=== PATIENT | female | born 1960 | race Caucasian/White ===

== ENCOUNTER → 2023-12-13 07:10 | Outpatient (REF) | payer MEDICARE, OTHER, SELFPAY | LOC: HWRAD 07:10 | PROVIDERS: ATTENDING PHYSICIAN Physician Assistant Medical | DX: M85.80 Other specified disorders of bone density and structure, unspecified site (principal); M85.89 Other specified disorders of bone density and structure, multiple sites | CPT/HCPCS: 77080 ==

== ENCOUNTER → 2024-01-27 11:59 | Outpatient (REF) | payer MEDICARE, OTHER, SELFPAY | LOC: HWRAD 11:59 | PROVIDERS: ATTENDING PHYSICIAN Physician Assistant Medical | DX: M25.562 Pain in left knee (principal) | CPT/HCPCS: 73564 ==

== ENCOUNTER → 2024-05-21 07:54 | Outpatient (REF) | payer MEDICARE, OTHER, SELFPAY | LOC: HWWDC 07:54 | PROVIDERS: ATTENDING PHYSICIAN Physician Assistant Medical | DX: Z12.31 Encounter for screening mammogram for malignant neoplasm of breast (principal) | CPT/HCPCS: 77063; 77067 ==

== ENCOUNTER → 2025-07-20 14:39 | Outpatient (REF) | payer MEDICARE, OTHER, SELFPAY | LOC: HWWDC 14:39 | PROVIDERS: ATTENDING PHYSICIAN Physician Assistant Medical | DX: Z12.31 Encounter for screening mammogram for malignant neoplasm of breast (principal) | CPT/HCPCS: 77063; 77067 ==

== ENCOUNTER 2025-08-01 02:41 | Observation (INO) | payer MEDICARE, OTHER, SELFPAY ==
[2025-07-31 19:43] VITALS: BP 155/90
[2025-07-31 20:14] LABS: Hematocrit 35.6 % (37.0-47.0); Hemoglobin 12.5 g/dL (12.0-16.0); Mean Corp Hgb Conc. 35.1 g/dL (33.0-37.0); Mean Corpuscular Volume 89.4 fL (81.0-99.0); Nucleated Red Blood Cells % 0 %; Platelet Count 213 10^3/uL (130-400); Red Cell Dist. Width 13.0 % (11.5-14.5)
[2025-07-31 20:28] LABS: ALT (SGPT) 16 U/L (0-35); AST (SGOT) 23 U/L (14-36); Albumin 4.6 g/dl (3.5-5.0); Alkaline Phosphatase 49 U/L (38-126); Blood Urea Nitrogen 14 mg/dl (7-17); Calcium 9.7 mg/dl (8.4-10.2); Carbon Dioxide 20 mmol/L (22-30); Chloride 106 mmol/L (98-107); Glucose 106 mg/dl (70-99); Potassium 3.6 mmol/L (3.5-5.1); Sodium 136 mmol/L (135-145); Total Protein 7.4 g/dl (6.3-8.2); eGFR > 60.00
[2025-07-31] MEDS: TRANSDERM-SCOP 1 PATCH TRANSDERM (21:19)
[2025-07-31 21:35] VITALS: BP 136/98; BMI 22.8
--- NOTE | 2025-07-31 21:44 | ED.GENMED ---
History of Present Illness
General
Chief Complaint: Dizziness
Source: patient and spouse
Time Seen by Provider: 07/31/25 21:21
History of Present Illness
History of Present Illness:
65-year-old female presents emergency department after an episode of dizziness associated with nausea and vomiting that started somewhat abruptly at 6:15 PM. She describes eating a hot dog, and then sometime after turned her head and all of a
sudden everything started 'turning'. She had repeated episodes of nausea and vomiting. She states that if she keeps her head in the midline position she feels much better and denies feeling dizzy at that time. She is still slightly nauseous. She
denies other symptoms such as numbness, tingling, focal weakness, double vision, trouble swallowing, change in speech, chest pain, shortness of breath, neck pain, recent trauma, abdominal pain, or other complaints. Patient has chronic tinnitus
bilaterally which reportedly related to chemotherapy that she has received in the past.
Past History
Past History
ED Past Medical History: Other (Thyroid cancer, uterine cancer)
Social History
Tobacco: Former smoker
Alcohol: Occasional
Drug: None
Living: with family
Phy Exam
Physical Exam
Physical Exam:
GENERAL: Alert , in no apparent distress
EYE: pupils equal and reactive, no photophobia, EOMI, left sided fatigable nystagmus, no vertical or rotational nystagmus
NECK: Supple, no significant adenopathy.
ENT: o/p clr, mmm, TMs clear bilaterally.
CARDIAC: Regular rate and rhythm .
LUNGS: Clear breath sounds bilaterally, no acute respiratory distress, no wheezes/rales/rhonchi
ABDOMEN: Soft, without focal tenderness, no r/g, no cvat
NEUROLOGICAL: Alert and oriented, no focal neuro deficits, visual gary intact, [id number] normal, motor 5 out of 5, sensory intact, cranial nerves II through XII intact
SKIN: Warm and dry, skin intact.
MUSCULOSKELETAL: No edema, well perfused.
PSYCH: Normal and appropriate interaction.
Course
Orders/Labs/Results
Orders:
Orders
07/31/25 19:47
Electrocardiogram (*1) Urgent
Reason for Study: Vertigo / Dizzy
EKG- Treatment ONCE
07/31/25 20:07
Complete Blood Count/With Diff Urgent
Comprehensive Metabolic Panel Urgent
07/31/25 21:06
Scopolamine [Transderm-Scop] 1 patch TRANSDERM NOW STA
07/31/25 21:44
CT Head W/o Iv Contrast Urgent
Comment:
Reason For Exam: dizzy, n, v
07/31/25 22:51
Lorazepam [Ativan] 1 mg IV NOW STA
08/01/25 02:07
Admit/Transfer Patient As Directed
Co-Sign Provider:
Level of Care: Observation services
Assign to:: Medical/Surgical
Physician / Group: Andra
Diagnosis: Vertigo
PRN Pain Medication Management As Directed
May give lesser potent ordered pain med per pt: Yes
preference::
Protocol:: Medication orders for pain may be administered in a
manner that supports deferring to patient preference
when the pt is:
- Requesting an ordered lesser potent pain medication.
Least to most potent pain medications are defined
as: acetaminophen < NSAID < tramadol < opioids
(morphine, oxycodone, hydromorphone).
- Requesting a lesser dose of the same medication IF
ORDERED.
- Requesting a less intrusive route of administration
if both routes are prescribed by the provider (PO <
IV).
08/01/25 02:08
Code Status As Directed
Resuscitation Status: Full Code
08/01/25 03:15
0.9% Sodium Chloride 1000 ml [Nss] 1,000 ml IV BOLUS
Acetaminophen [Tylenol] 650 mg PO Q4HPRN PRN
Bisacodyl [Dulcolax] 10 mg RECTAL [id number] PRN
Docusate W/Senna [Senokot-S] 1 tablet PO BIDPRN PRN
Meclizine [Antivert] 25 mg PO Q8H PRN
Ondansetron Injectable [Zofran] 4 mg IV Q6HPRN PRN
Polyethylene Glycol Powder [Miralax] 17 grams PO DAILYPRN PRN
08/01/25 03:15
MRI Brain [MR Brain Without Contrast] Routine
Comment:
Reason For Exam: vertigo, eval for central ischemic lesion
Recent pill cam endoscopy?: No
Activity As Directed
Activity Level: With Assistance
Pneumatic Compression Sleeves As Directed
Type: Knee high
Vital Signs As Directed
Frequency: Per unit guidelines
Pulse Ox/spot Check [RESP] Routine
Quantity: 1
DX Deep Vein Thrombosis Video Routine
08/01/25 Breakfast
Regular
At Your Request: Full Participation
Does patient need a safe tray?: No
Levothyroxine [Synthroid] 112 mcg PO DAILY@0600
08/01/25 08:00
Gabapentin [Neurontin] 300 mg PO BID
Abnormal Lab Results
07/31/25
20:07
RBC 3.98 L 10^6/uL
(4.20-5.40)
Hct 35.6 L %
(37.0-47.0)
MCH 31.4 H pg
(27.0-31.0)
Carbon Dioxide 20 L mmol/L
(22-30)
Glucose 106 H mg/dl
(70-99)
07/31/25 20:07
07/31/25 20:07
Vital Signs
Initial and Last Documented VS:
Initial Vital Signs
Temp Pulse Resp BP Pulse Ox
98 F 84 16 155/90 100
07/31/25 19:43 07/31/25 19:43 07/31/25 19:43 07/31/25 19:43 07/31/25 19:43
Last Documented Vital Signs
Temp Pulse Resp BP Pulse Ox
98 F 63 14 115/72 100
07/31/25 19:43 08/01/25 06:47 08/01/25 06:47 08/01/25 14:42 08/01/25 06:47
*Pulse Oximetry
SaO2: 100
Oxygen Mode of Delivery: Room air
Patient hypoxic: no
*Critical Care Note
Total Time (30-74mins, 75-104mins- exclusive of procedures): Not Applicable
Update Note
Update Note:
Patient presents to the Emergency Department with ___dizziness nausea vomiting
Number and Complexity of Problems Addressed at the Encounter
� Chronic conditions affecting care:
� Acute Exacerbation and/or Progression of Chronic Illness:
� Differential Diagnosis includes: But not limited to BPPV, vestibular neuritis,'s TIA/CVA, etc. etc.
Amount and/or Complexity of Data to be Reviewed and Analyzed
� I performed an independent evaluation of and my interpretation is:
EKG: Read by me, sinus tachycardia, LAD, LVH, no acute ischemia
CT: Read by vision, no acute intracranial abnormalities noted. Patient does have 2 scalp abnormalities which she is already aware of and follows with a choker setter about
Xrays:
Laboratory Studies: Generally unremarkable
Other:
� Review of other/old records reveals:
� Clinical information was obtained by an independent historian: 'Other tania' Cruzito
� Prescriptions/Medications Considered but not given:
� Further testing considered but not performed:
Risk of Complications and/or Morbidity or Mortality of Patient Management
� Social determinants of health affecting care:
� Discussion with other providers (PCP, Hospitalists, Consultants, etc):
� Escalation of care including admission/observation vs risk of discharge considered:1231AM Pt was first given scopalomine patch with min ros. Then, given ativan (avoiding agents such a reglan etc given qt prolonged). She is
feels better but not at baseline. Upon standing, pt is extremely off balance and unable to walk. Awaiting ct report.
1:[address] noted and discussed with patient and significant other. We will admit her with plans for further imaging/evaluation in AM. She is not a candidate for acute intervention such as TNK or MT given low NIH score. Historically, her symptoms
do sound most consistent with peripheral vertigo however given how persistent it is, we will continue management here in the hospital. Case discussed with hospitalist.
ED Attending Note
-
Portions of this chart may have been created with voice recognition software.� Occasional wrong word or��sound alike� substitutions may have occurred due to the inherent limitations of voice recognition software.
Discharge Plan
Departure
Patient Disposition: Admit
Date of Disposition: 08/01/25
Time of Disposition: 01:38
Admit to: Telemetry
Presentation/result/management discussed w/ accepting MD/DO: Hospitalist
Condition: Fair
Discharge Problem:
Vertigo
Interventions
Interventions:
*General Assessment Last Done: 07/31/25 21:35
*Neglect/Abuse Screening Last Done: 07/31/25 19:49
*ED COVID-19 Vaccine History Last Done: 07/31/25 21:42
*ED Influenza Vaccine History Last Done: 07/31/25 21:42
[facility] Risk Assessment Tool Last Done: 07/31/25 21:40
*Risk Screen - Suicide (C-SSRS) Last Done: 07/31/25 19:49
*Nursing Disposition Last Done: 08/01/25 16:58
ED- Neurological Assessment Last Done: 07/31/25 21:37
ED- Cardiac Assessment Last Done: 07/31/25 21:40
ED Swallowing Screen Last Done: 07/31/25 21:40
Discharge Date and Time
Discharge Date/Time: 08/01/25 16:58
[2025-07-31 22:00] VITALS: BP 151/78
[2025-07-31 23:00] VITALS: BP 153/72
[2025-07-31] MEDS: ATIVAN 1 MG IV (23:16)
[2025-08-01] VITALS: BP 127/79
--- NOTE | 2025-08-01 01:40 | HPS.HSE ---
Family Physician
-
Family Physician: NOT KNOW UNKNOWN - PT DOES
Chief Complaint
-
Dizziness
History of Present Illness
This is a 65-year-old female who has past medical history significant for thyroid cancer status post thyroidectomy, uterine cancer status post hysterectomy and bilateral salpingo-oophorectomy and chemotherapy, melanoma status post resection presents
to the emergency department with episode of dizziness with associated nausea vomiting and also 1 episode of diarrhea.
Patient was in usual state of health but notes that she has a history of tinnitus after chemotherapy. She stated that she had a hot dog in the afternoon and later while sitting down watching TV she developed sensation of dizziness. She describes
this is as a sensation of R motion but not spinning. Reports diarrhea with nausea and she did vomit. Several hours later that she had an episode of diarrhea. Spouse was over at the daughter reported that he had abdominal discomfort and then
watery bowel movement. Patient denies any prior episodes of vertigo. She denies any double vision or blurry vision. She denies any headache. She denies any numbness tingling or weakness. She reports that anytime she has tried to walk she has
had worsening of the dizziness. She denies any rash. She denies any recent upper respiratory infection fevers or chills.
In the emergency department she was afebrile, blood pressure was 130/80 with a pulse of 84 and oxygen saturation of 96% on room air. ECG was unremarkable. CT of the head shows no acute findings. CBC was all within normal limit. Electrolyte
BUN/creatinine was normal.
Medical History
Past Medical History
Past Medical History: Reports Cancer (Uterine cancer 12/19/2017, melanoma 2009, 2010, thyroid cancer status post thyroidectomy 2010)
Past Surgical History: Reports Gynocological (Hysterectomy with bilateral salpingo-oophorectomy) and Other (Thyroidectomy, melanoma excision, liposuction,)
Social History
Tobacco: Non-smoker
Alcohol: None
Drug: None
Family History
Family History: Not pertinent
Allergies / Home Medications
Allergies reflects when Allergies were last updated in [facility].
Home Medications with original date entered in [facility]
Allergy/Medication List:
Allergies
Allergy/AdvReac Type Severity Reaction Status Date / Time
Penicillins Allergy Unknown Verified 07/31/25 19:49
Home Medications
gabapentin 300 mg capsule 300 mg PO BID 08/01/25
levothyroxine 112 mcg tablet (Synthroid) 112 mcg PO DAILY 08/01/25
Review of Systems
-
Constitutional: Reports No Symptoms
EENT: Reports No Symptoms
Respiratory: Reports No Symptoms
Cardiac: Reports No Symptoms
Abdomen/GI: Reports No Symptoms
: Reports No Symptoms
Musculoskeletal: Reports No Symptoms
Skin: Reports No Symptoms
Neurological: Reports Dizzy; Denies Headache, Weakness or Numbness
Endocrine: Reports No Symptoms
Hematologic/Lymphatic: Reports No Symptoms
Psych: Reports No Symptoms
Physical Exam
Vital Signs
Vital Signs
Temp Pulse Resp BP Pulse Ox
98 F 84 16 127/79 96
07/31/25 19:43 07/31/25 19:43 07/31/25 19:43 08/01/25 00:00 08/01/25 00:15
Physical Exam
General: Well Developed, Well Nourished and No Apparent Distress
HEENT: NormoCephalic, Moist mucous membranes and Atraumatic
Respiratory: Clear
Cardiac: S1/S2 and Regular Rhythm; No Murmur or Rub
GI: Soft, Non Tender, Non Distended and Normal Bowel Sounds; No Organomegaly
Rectal: Deferred by Provider
Musculoskeletal: No Clubbing, No Cyanosis and No Edema
Skin: No Rash
Neuro: AO x 3 and Nonfocal/grossly intact
Laboratory Results
-
07/31/25 20:07
07/31/25 20:07
Laboratory Results
Total Bilirubin 0.5 mg/dl (0.2-1.3) 07/31/25 20:07
AST 23 U/L (14-36) 07/31/25 20:07
ALT 16 U/L (0-35) 07/31/25 20:07
Alkaline Phosphatase 49 U/L (38-126) 07/31/25 20:07
Data Reviewed
-
CT Scan: Report Reviewed by me
Medical Tests (Nuc Med, Echo, EKG etc): Image Personally Visualized and interpreted
Lab Data: Labs Reviewed by me
Impression/Plan
-
IMPRESSION:
65-year-old with past medical history significant for uterine cancer status post surgery and chemotherapy, history of melanoma status post session, history of thyroid cancer status post thyroidectomy with subsequent hypothyroidism presented to the
emergency department with vertigo. She has no headache, blurry vision double vision or any focal logical deficits. Vertigo is improved. She states that she has sensation of ongoing lateral movement when she moves her head. I was able to induce
vertigo with head movement in the coronal plane. However head movement in the sagittal plane or transverse plane did not induce any vertigo. She reports nausea has improved. She does have tinnitus which appears to be chronic since her
chemotherapy. Suspect a peripheral vertigo likely BPPV but cannot rule out a central lesion entirely. Symptoms began after a 10 dog which also affected spouse so there could be an element of food poisoning.
PLAN:
Vertigo -acute episode of vertigo without any evidence of a viral infection, no prior history of vertigo despite tinnitus to suggest M�ni�re's and no focal logical deficits to suggest acute intracranial lesion. However she does have a history of
malignancy.
� Admit to MedSurg observation
� Continue with meclizine as needed
� Gentle hydration overnight
� MRI in a.m.
� If MRI negative, can try Billie maneuver.
� Neurochecks every 6-8 hours
� Continue Synthroid and gabapentin
DVT prophylaxis�SCDs
CODE STATUS�full code
[2025-08-01] MEDS: NSS 1000 IV (05:26)
[2025-08-01 06:44] VITALS: BP 112/71
[2025-08-01 06:47] VITALS: BP 112/71
--- NOTE | 2025-08-01 07:31 | W.PN.HOSP.TC ---
Today's Communication/Plan
-
Doing better
MRI Brain
PT/OT
Assessment / Plan
Assessment / Plan
Physical Exam
General: Well Developed, Well Nourished and No Apparent Distress
HEENT: Normocephalic, Moist mucous membranes
Respiratory: Clear to Auscultation Bilaterally
Cardiac: S1/S2 and Regular Rhythm
GI: Soft, Non Tender, Non Distended and Normal Bowel Sounds
Musculoskeletal: No Cyanosis and No Edema
Skin: Warm. Dry.
Neuro: AAO x 3. Cranial Nerves 2 through 12 grossly intact. Strength 5/5 in the bilateral upper and lower extremities. Sensation grossly intact bilaterally.
Assessment/Plan
65-year-old female with past medical history significant for thyroid cancer status post thyroidectomy, uterine cancer status post hysterectomy and bilateral salpingo-oophorectomy and chemotherapy, melanoma status post resection presented to the
emergency department with dizziness (spinning sensation with moving head) with associated nausea vomiting. Patient was in usual state of health but notes that she has a history of tinnitus after chemotherapy in 2018. She stated that she had a hot
dog in the afternoon on 07/31/24, but later while sitting down watching TV she developed a sensation of dizziness. She describes this is as spinning whenever she gizzard skin remover her head. There were reports of diarrhea but patient later denied this. Patient
denied any prior episodes of vertigo. She denied any double vision or blurry vision. She denied any headache. She denied any numbness tingling or weakness. She reported that anytime she has tried to walk she has had worsening of the dizziness. She
denied any rash. She denied any recent upper respiratory infection fevers or chills. In the emergency department she was afebrile, blood pressure was 130/80 with a pulse of 84 and oxygen saturation of 96% on room air. ECG was unremarkable. CT of
the head showed no acute findings. Labs were okay.
Vertigo -acute episode of vertigo without any evidence of a viral infection, no prior history of vertigo
Chronic Tinnitus status post chemo in 2018 for cancer
- Vertigo associated with vomiting
- Symptoms are slowly improving
� Continue with meclizine as needed
� Gentle hydration
� MRI Brain ordered
� If MRI negative, can try Billie maneuver.
� Neurochecks every 6-8 hours
� Continue Synthroid and gabapentin
History of uterine cancer status post surgery and chemotherapy
History of melanoma
History of thyroid cancer status post thyroidectomy with subsequent hypothyroidism
Hypothyroidism
-Continue Levothyroxine
Osteoporosis
Osteopenia
Hyperlipidemia
History of Herpes Genitalis
DVT prophylaxis�SCDs. Lovenox.
CODE STATUS�full code
This is a non-billable note
Anticipated Discharge: 24 - 48 hours
Subjective/Interval History
-
Date of Service: August 01, 2025
Patient was seen and examined. She reported that her dizziness is better, and vomiting has resolved. She denied any other new symptoms or issues.
Objective Data
-
Labs:
Laboratory Results
07/31/25
20:07
WBC 7.1
Hgb 12.5
Hct 35.6 L
Plt Count 213
Sodium 136
Potassium 3.6
Chloride 106
Carbon Dioxide 20 L
BUN 14
Creatinine 0.7
Glucose 106 H
Calcium 9.7
Total Bilirubin 0.5
AST 23
ALT 16
Alkaline Phosphatase 49
Vital Signs:
Vital Signs
Temp Pulse Resp BP Pulse Ox
98 F 63 14 112/71 100
07/31/25 19:43 08/01/25 06:47 08/01/25 06:47 08/01/25 06:47 08/01/25 06:47
[2025-08-01] MEDS: NEURONTIN 300 MG PO (08:36)
[2025-08-01] MEDS: SYNTHROID 112 MCG PO (08:36)
--- NOTE | 2025-08-01 10:42 | CM ---
Chart reviewed. RIBERA reviewed
Spoke with pt at ED bedside
Lives in [address] with [facility] [address] [facility]
independent with ADLs
no DME
PCP Pia Diana
[facility] in [place]
no hx of VN nor SNF
DCP is to go home no needs
can pick her up at [place]
CM will continue to follow up for any dcp needs
[2025-08-01 14:42] VITALS: BP 115/72
== END 2025-08-01 16:57 | disposition home or self-care (01) ==
LOC: ED 02:41
PROVIDERS: Emergency Medicine; ADMITTING PHYSICIAN Internal Medicine; ATTENDING PHYSICIAN Hospitalist; EMERGENCY PHYSICIAN Emergency Medicine
DX: R42 Dizziness and giddiness (principal); R11.2 Nausea with vomiting, unspecified; H93.13 Tinnitus, bilateral; I45.4 Nonspecific intraventricular block; M81.0 Age-related osteoporosis without current pathological fracture; E78.5 Hyperlipidemia, unspecified; E89.0 Postprocedural hypothyroidism; I25.2 Old myocardial infarction; Z85.42 Personal history of malignant neoplasm of other parts of uterus; Z85.850 Personal history of malignant neoplasm of thyroid; Z87.891 Personal history of nicotine dependence; Z79.890 Hormone replacement therapy; Z79.899 Other long term (current) drug therapy; Z85.820 Personal history of malignant melanoma of skin; Z90.710 Acquired absence of both cervix and uterus; Z90.722 Acquired absence of ovaries, bilateral; Z88.0 Allergy status to penicillin; Z92.21 Personal history of antineoplastic chemotherapy
CPT/HCPCS: 70450; 70551; 80053; 85025; 93005; 96374; 99285; G0378